=== PATIENT | male | born 1960 | race Caucasian/White ===

== ENCOUNTER 2021-03-30 12:31 | Outpatient (CLI) | payer OTHER, SELFPAY ==
--- NOTE | ~2021-03-30 | MR_ITS ---
EXAMINATION: MR lumbar spine wo con DATE: 03/30/2021 13:48 INDICATION: Lumbago. TECHNIQUE: Magnetic resonance imaging (MRI) of the lumbar spine was performed without intravenous con trast. Sequences included sagittal T2-weighted FSE, sagittal T2-weighted FS FSE, sagittal T1-weighted FSE, and axial T2-weighted FSE. COMPARISON: None FINDINGS: There is 3 mm anterolisthesis of T12 on L1 and 3 mm retrolisthesis of L1 on L2 and L2 on L3 . There are changes of posterior fusion procedure at L2-L3 with pedicle screws. There is interbody fu babita at L2-L3. There are changes of anterior fusion procedure at L5-S1 with interbody device and brid ging bone graft. There is severely decreased disc height at T12-L1 and L1-L2 with endplate remodeling . There is moderately decreased disc height at L3-L4. There are disc calcifications at L4-L5. The dis alis spinal cord signal intensity is normal. The conus medullaris is at L1. There is peripheral displa cement of the cauda equina at L5 and S1, consistent with arachnoiditis The following disc levels are specifically discussed: L1-L2: The disc is bulging and has an annular fissure. There is no facet joint hypertrophy. There is moderate right and mild left neural foraminal stenosis. There is mild central canal stenosis. L2-L3: There is no facet joint hypertrophy. There is moderate bilateral neural foraminal stenosis. Th ere is mild central canal stenosis with posterior decompression. L3-L4: The disc does not extend beyond the endplate margin. There is moderate right facet joint osteo arthritis. There is mild bilateral neural foraminal stenosis. There is no central canal stenosis. L4-L5: The disc does not extend beyond the endplate margin. There is ankylosis of the facet joints wi th mild bilateral hypertrophy. There is mild bilateral neural foraminal stenosis. There is no central canal stenosis. L5-S1: The disc does not extend beyond the endplate margin. There is no facet joint hypertrophy. Ther e is no neural foraminal stenosis. There is no central canal stenosis. IMPRESSION: 1. Severe thoracolumbar spondylosis. 2. Posterior fusion procedure at L2-L3 and anterior fusion procedure at L5-S1. 3. Arachnoiditis. Reviewed, dictated and finalized at location A.
--- NOTE | ~2021-03-30 | MR_ITS ---
EXAMINATION: MR thoracic spine wo con EXAM DATE: 03/30/2021 13:48 INDICATION: Pain in thoracic; lumbago TECHNIQUE: Multi-sequential, multiplanar MR images of the thoracic spine were obtained without contra st. Sagittal T1, T2, T2 fat saturation, axial T2 weighted images reviewed. There is no prior study for comparison. FINDINGS: Mild mid and lower thoracic disc disease with small disc bulges and protrusions. The thorac ic spinal canal is widely patent. There is mild to moderate left neural foraminal stenosis at T9-10, mild right neural foraminal stenosis at T6-7 and T7-8. Mild left neural foraminal stenosis at T11-12. Mild to moderate facet arthropathy. The conus medullaris terminates at the T12-L1 level and has normal signal intensity and morphology. T he spinal cord signal intensity and intrinsic morphology is normal. There are no suspicious marrow si gnal abnormalities. Paraspinal soft tissue is unremarkable. IMPRESSION: Mild thoracic disc disease, mild to moderate facet arthropathy. Reviewed, dictated and finalized at location A.
== END 2021-03-30 12:32 | disposition home or self-care (01) ==
PROVIDERS: Visit Provider Nurse Practitioner Family
DX: M51.34 Other intervertebral disc degeneration, thoracic region (principal); M47.895 Other spondylosis, thoracolumbar region; Z98.1 Arthrodesis status
CPT/HCPCS: 72146; 72148

== ENCOUNTER 2023-08-16 22:47 | Emergency (ER) | payer OTHER, SELFPAY ==
--- NOTE | ~2023-08-16 | XR_ITS ---
Portable chest x-ray Comparison: None Clinical History: Dizziness Findings: Lungs are clear, without focal consolidation or pleural effusion. Cardiomediastinal silho uette is unremarkable. Bones and soft tissues are unremarkable. Impression: Clear lungs. Reviewed, dictated and finalized at location M. 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
--- NOTE | ~2023-08-16 | CT_ITS ---
Non-contrast Head CT History: Dizziness Technique: Axial non-contrast imaging of the brain was performed. Dose reduction technique was used on this scan by utilizing automated exposure control and iterative reconstruction technique. The dose -length product (DLP) was 605.33 mGy-cm. Findings: There is no evidence of intracranial hemorrhage, mass lesion, or acute infarct. Brain par enchyma appears normal. The ventricles and subarachnoid spaces are normal in size. The calvarium ap pears normal. The visualized paranasal sinuses and mastoid air cells are clear. Impression: No significant abnormality seen. Reviewed, dictated and finalized at location . 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
[2023-08-16 23:13] VITALS: BP 158/92; PULSE 67; RESP 16; TEMP 36.5; O2SAT 93
--- NOTE | 2023-08-16 23:27 | ECG_ITS ---
Measurements Intervals [place] Rate: 60 P: -88 CA: 301 QRS: 1 QRSD: 101 T: 17 QT: 430 QTc: 431 Interpretive Statements SINUS RHYTHM VOLTAGE CRITERIA FOR LVH MINIMAL Q WAVES- HIGH LATERAL LEADS BORDERLINE T WAVE ABNORMALITY- INFERIOR LEADS BASELINE ARTIFACT- II, III, AVF BORDERLINE ECG NO PREVIOUS ECG AVAILABLE FOR COMPARISON Electronically Signed On 08-17-2023 6:29:55 [employer] by Yadiel Couch D.O.
[2023-08-16 23:48] LABS: Basophils Absolute Auto 0.1 K/mm3 (0.0-0.1); Basophils Percent Auto 1.1 % (0.2-1.2); Hematocrit 50.7 % (42.0-52.0); Immature Granulocyte Absolute 0.05 K/mm3 (0.00-0.031); Immature Granulocyte Percent A 0.4 % (0-0.5); Lymphocytes Absolute Auto 2.29 K/mm3 (0.9-3.2); Lymphocytes Percent Auto 18.1 % (18.3-44.2); Mean Corpuscular HGB Conc 31.6 g/dl (32-36); Mean Corpuscular Hemoglobin 29.7 pg (26-34); Mean Corpuscular Volume 94.1 fl (80-100); Mean Platelet Volume 10.8 fl (7.4-10.4); Monocytes Absolute Auto 0.6 K/mm3 (0.1-0.6); Neutrophils Absolute Auto 9.5 K/mm3 (1.3-6.7); Neutrophils Percent Auto 75.4 % (45.5-73.1); Platelet Count Result 270 k/mm3 (150-375); Red Blood Count 5.39 M/mm3 (4.6-6.20); Red Cell Distribution Width 12.9 % (11.5-14.5); White Blood Count 12.6 K/mm3 (4.5-10.0)
[2023-08-17] VITALS (18 sets, daily range): BP systolic 137–159; BP diastolic 78–90; PULSE 57–76; RESP 10–18; TEMP 36.3; O2SAT 95–100
[2023-08-17 00:02] LABS: Alanine Aminotransferase 38 U/L (6-50); Albumin Level 4.5 g/dL (3.5-5.1); Alkaline Phosphatase 95 U/L (38-126); Anion Gap 11 mmol/L (8-16); Aspartate Amino Transferase 42 U/L (17-59); Bilirubin,Total 0.6 mg/dL (0.2-1.3); Blood Urea Nitrogen 24 mg/dL (9-20); Calcium 9.1 mg/dL (8.4-10.2); Carbon Dioxide 25 mmol/L (22-30); Chloride 106 mmol/L (98-107); Estimated CRCL calculation 94 ml/min; Estimated Glomerular Filt Rate > 60; Glucose 129 mg/dL (65-110); Potassium 3.9 mmol/L (3.4-5.0); Sodium 142 mmol/L (137-145)
[2023-08-17] MEDS: MECLIZINE HCL 25 MG TABLET PO (01:22)
[2023-08-17 02:12] LABS: Lactic Acid Reflex 1.4 mmol/L (0.7-2.0); Magnesium 2.2 mg/dL (1.6-2.3)
[2023-08-17 02:13] LABS: Partial Thromboplastin Time 25.1 SECONDS (22.3-36.8); Prothrombin Time 13.9 Seconds (11.1-14.7)
[2023-08-17 02:25] LABS: Troponin I < 0.012 ng/mL (0.000-0.034)
[2023-08-17] MEDS: SODIUM CHLORIDE 0.9% IV 1,000 ML 999 ML IV CONT (02:34)
[2023-08-17 03:17] LABS: Appearance Urine Clear (Clear); Bilirubin Urine Negative (Negative); Blood Urine Negative (Negative); Color Urine Yellow (Yellow); Glucose Urine UA Negative (Negative); Ketones Urine Negative (Negative); Leukocyte Esterase Ur Negative LEU/UL (Negative); Nitrate Urine Negative (Negative); Protein Urine Negative (Negative); Urobilinogen Urine 0.2 mg/dL (<2.0); pH Urine 6.5 (5.0-9.0)
[2023-08-17 03:32] LABS: Add Urine Microscopic? NO
--- NOTE | 2023-08-17 04:01 | ED.GENADULT ---
HPI - General Adult General Chief complaint: Dizziness Stated complaint: dizziness/vomiting/high bp Time Seen by Provider: 08/17/23 00:59 History of Present Illness HPI narrative: Patient 63-year-old gentleman who presents emergency department with chief complaint of dizziness. The patient reports that he has had some nausea vomiting with this as well patient reports that his notice that he has a spinning sensation in his head and noticed that his hearing has decreased. The patient does had no chest pain or shortness of breath the patient has noticed that his blood pressure has been moderately elevated but [facility] and [facility] have been adjusting his blood pressure medicines at home. Related Data Allergies Allergy/AdvReac Type Severity Reaction Status Date / Time No Known Allergies Allergy Verified 08/16/23 22:48 Review of Systems Review of Systems: A 10 system review of systems was completed on the patient and is negative except for what is stated in the HPI. Nursing and ancillary documentation was reviewed. Exam Narrative: GENERAL: Well-appearing, well-nourished, and in no acute distress. HEAD: Normocephalic, atraumatic. EYES: PERRLA and EOMI. ENT: Nares clear, no rhinorrhea or epistaxis. Mucous membranes moist. Bilateral cerumen impaction NECK: Supple. CHEST: Clear to auscultation. No respiratory distress. HEART: Regular rate and rhythm. No murmur heard. Normal peripheral pulses. ABDOMEN: Soft, nontender, nondistended, normal active bowel sounds. EXTREMITIES: Normal range of motion. No edema. SKIN: Warm, dry, no rash. NEURO: No focal deficits. Alert and oriented x3. PSYCH: Normal mood and affect. Course Vital Signs Vital signs: Vital Signs Temperature 36.5 C 08/16/23 23:13 Pulse Rate 67 08/16/23 23:13 Respiratory Rate 16 08/16/23 23:13 Blood Pressure 158/92 H 08/16/23 23:13 Pulse Oximetry 93 08/16/23 23:13 Oxygen Delivery Room Air 08/16/23 23:13 Temperature 36.3 C L 08/17/23 01:01 Pulse Rate 63 08/17/23 03:31 Respiratory Rate 18 08/17/23 03:31 Blood Pressure 146/86 H 08/17/23 03:30 Pulse Oximetry 97 08/17/23 03:31 Oxygen Delivery Room Air 08/16/23 23:13 Medical Decision Making MDM Narrative Medical decision making narrative: Differential diagnosis includes vertigo, cerumen impaction, ACS, dysrhythmia, CVA, intracranial hemorrhage, Laboratory studies were obtained on the patient which showed white count of 12.6 electrolytes are within normal limits lactic acid was normal troponin was negative urinalysis showed no evidence UTI Chest x-ray showed no focal finding CT head showed no acute findings The patient is feeling much better after receiving his ears being flushed Vital Signs Vital Signs: Vital Signs Temperature 36.5 C 08/16/23 23:13 Pulse Rate 67 08/16/23 23:13 Respiratory Rate 16 08/16/23 23:13 Blood Pressure 158/92 H 08/16/23 23:13 Pulse Oximetry 93 08/16/23 23:13 Oxygen Delivery Room Air 08/16/23 23:13 Temperature 36.3 C L 08/17/23 01:01 Pulse Rate 63 08/17/23 03:31 Respiratory Rate 18 08/17/23 03:31 Blood Pressure 146/86 H 08/17/23 03:30 Pulse Oximetry 97 08/17/23 03:31 Oxygen Delivery Room Air 08/16/23 23:13 Lab Data 08/16/23 23:41 08/16/23 23:41 Labs: Lab Results 08/16/23 08/17/23 08/17/23 Range/Units 23:41 01:55 03:10 WBC 12.6 H (4.5-10.0) K/mm3 RBC 5.39 (4.6-6.20) M/mm3 Hgb 16.0 (14.0-18.0) g/dL Hct 50.7 (42.0-52.0) % MCV 94.1 (80-100) fl MCH 29.7 (26-34) pg MCHC 31.6 L (32-36) g/dl RDW 12.9 (11.5-14.5) % Plt Count 270 (150-375) k/mm3 MPV 10.8 H (7.4-10.4) fl Immature Gran % (Auto) 0.4 (0-0.5) % Neut % (Auto) 75.4 H (45.5-73.1) % Lymph % (Auto) 18.1 L (18.3-44.2) % [place] % (Auto) 5.0 (2.6-8.5) % Eos % (Auto) 0.0 (0-4.4) % Baso % (Auto) 1.1
== END 2023-08-17 04:32 | disposition home or self-care (01) ==
PROVIDERS: Emergency Provider Emergency Medicine
DX: H61.20 Impacted cerumen, unspecified ear (principal); I10 Essential (primary) hypertension; R42 Dizziness and giddiness
CPT/HCPCS: 36415; 70450; 71045; 80053; 81003; 83605; 83735; 84484; 85025; 85610; 85730; 93005; 96360; 99284; A9270; J7030